=== PATIENT | female | born 1975 | race Caucasian/White ===

== ENCOUNTER 2018-08-11 06:05 | Emergency (ER) | payer BC, OTHER ==
[2018-08-11] MEDS ORDERED: Sodium Chloride 0.9% 1,000 ML IV ONE (06:23)
[2018-08-11] MEDS ORDERED: Ketorolac 30 MG/ML SDV IVPUSH ONE (06:23)
[2018-08-11] MEDS ORDERED: Diltiazem 25 MG/5 ML SDV IVPUSH ONE (06:28)
[2018-08-11] MEDS ORDERED: Ondansetron 4 MG/2 ML SDV IV ONE (06:28)
--- NOTE | 2018-08-11 06:30 | EDM.PDOC ---
<William Eisenberg - Last Filed: 08/11/18 06:44> ED HPI GENERAL MEDICAL PROBLEM - General Chief Complaint: Headache Stated Complaint: SWEATS/HEADACHE/CHEST POUNDING [id number] Time Seen by Provider: 08/11/18 06:25 Source of Information: Reports: Patient, Family History Limitations: Reports: No Limitations - History of Present Illness INITIAL COMMENTS - FREE TEXT/NARRATIVE: c/o recurrent CHOWDARY worse one ever. started yesterday with N&V, took 2x oxy for chronic LBP but not helping. also has chest tightness heart pounding sweaty. spouse states she was fine came up for fishing and Sx started after getting back. took extra BP Rx also. denies preg had hysterectomy. Right Frontal Headache Pain Score (Numeric/FACES): 8 - Related Data Allergies Allergy/AdvReac Type Severity Reaction Status Date / Time No Known Allergies Allergy Verified 08/11/18 06:27 Home Meds: Home Meds Escitalopram [Lexapro] 20 mg PO DAILY 08/11/18 [History] Propranolol HCl [Inderal LA] 160 mg PO DAILY 08/11/18 [History] Topiramate 150 mg PO BEDTIME 08/11/18 [History] atorvaSTATin [Lipitor] 20 mg PO BEDTIME 08/11/18 [History] buPROPion HCl [Wellbutrin Xl] 300 mg PO DAILY 08/11/18 [History] clonazePAM [Clonazepam] 1 mg PO BEDTIME 08/11/18 [History] metFORMIN HCl [Metformin HCl] 1,000 mg PO BID 08/11/18 [History] oxyCODONE HCl/Acetaminophen [Oxycodone-Acetaminophen 5-325] 5 mg PO Q6HR PRN [History] ED ROS GENERAL - Review of Systems Review Of Systems: ROS reveals no pertinent complaints other than HPI. - Physical Exam Exam: See Below Exam Limited By: No Limitations General Appearance: Alert, WD/WN, Mild Distress, Other (tearful upset) Eye Exam: Bilateral Eye: PERRL (pupils ER @ 4mm) Ears: Hearing Grossly Normal Throat/Mouth: Normal Voice, No Airway Compromise Head Exam: Atraumatic Neck: Non-Tender, Full Range of Motion Respiratory/Chest: No Respiratory Distress Cardiovascular: Regular Rate, Rhythm GI/Abdominal: Soft, Non-Tender Neuro Exam (Abbreviated): Alert, Oriented, Normal Cognition, Normal Gait, No Motor/Sensory Deficits Psychiatric: Tearful Skin Exam: Warm, Dry, Normal Color Course - Vital Signs Last Recorded V/S: Last Vital Signs Temp 36.5 C 08/11/18 06:08 Pulse 83 08/11/18 06:08 Resp 17 08/11/18 06:08 BP 182/130 H 08/11/18 06:08 Pulse Ox 100 08/11/18 06:08 - Orders/Labs/Meds Orders: Active Orders 24 hr Category Date Time Status Head wo Cont [CT] Urgent Exams 08/11/18 06:44 Taken Labs: Laboratory Tests 08/11/18 08/11/18 08/11/18 Range/Units 06:20 06:20 06:22 WBC 12.4 H (5.0-10.0) 10^3/uL RBC 4.71 (4.2-5.4) 10^6/uL Hgb 14.2 (12.0-16.0) g/dL Hct 41.1 (37.0-47.0) % MCV 87.3 (80-100) fL MCH 30.1 (27.0-34.0) pg MCHC 34.5 (33.0-35.0) g/dL Plt Count 206 (150-450) 10^3/uL Neut % (Auto) 73.0 (42.2-75.2) % Lymph % (Auto) 19.5 L (20.5-50.1) % [place] % (Auto) 5.6 (2-8) % Eos % (Auto) 1.7 (1.0-3.0) % Baso % (Auto) 0.2 (0.0-1.0) % Sodium 137 (135-145) mmol/L Potassium 3.3 L (3.6-5.0) mmol/L Chloride 104 (101-111) mmol/L Carbon Dioxide 22.0 (21.0-31.0) mmol/L Anion Gap 14.3 BUN 16 (7-18) mg/dL Creatinine 0.7 (0.6-1.3) mg/dL Est Cr Clr Drug Dosing 88.68 mL/min Estimated GFR (MDRD) > 60 BUN/Creatinine Ratio 22.85 Glucose 131 H (74-105) mg/dL POC Glucose 130 H (70-105) mg/dl Calcium 9.0 (8.4-10.2) mg/dl Total Bilirubin 0.8 (0.2-1.0) mg/dL AST 17 (10-42) IU/L ALT 21 (10-60) IU/L Alkaline Phosphatase 44 (42-121) IU/L Troponin I < 0.02 (0.00-0.02) ng/ml Total Protein 7.3 (6.7-8.2) g/dl Albumin 4.4 (3.2-5.5) g/dl Globulin 2.9 Albumin/Globulin Ratio 1.52 Urine Color (YELLOW) Urine Appearance (CLEAR) Urine pH (5.0-9.0) Ur Specific [place] (1.005-1.030) Urine Protein (NEGATIVE) Urine Glucose (UA) (NEGATIVE) Urine Ketones (NEGATIVE) Urine Occult Blood (NEGATIVE) Urine Nitrite (NEGATIVE) Urine Bilirubin (NEGATIVE) Urine Urobilinogen (0.2-1.0) mg/dL Ur Leukocyte Esterase (NEGATIVE) Urine Opiates Screen (NEGATIVE) Ur Oxycodone Screen (NEGATIVE) Urine Methadone Screen (NEGATIVE) Ur Barbiturates Screen (NEGATIVE) U Tricyclic Antidepress (NEGATIVE) Ur Phencyclidine Scrn (NEGATIVE) Ur Amphetamine Screen (NEGATIVE) U Methamphetamines Scrn (NEGATIVE) Urine MDMA Screen (NEGATIVE) U Benzodiazepines Scrn (NEGATIVE) Urine Cocaine Screen (NEGATIVE) U Marijuana (THC) Screen (NEGATIVE) Ethyl Alcohol < 5 mg/dL 08/11/18 08/11/18 Range/Units 07:21 07:21 WBC (5.0-10.0) 10^3/uL RBC (4.2-5.4) 10^6/uL Hgb (12.0-16.0) g/dL Hct (37.0-47.0) % MCV (80-100) fL MCH (27.0-34.0) pg MCHC (33.0-35.0) g/dL Plt Count (150-450) 10^3/uL Neut % (Auto) (42.2-75.2) % Lymph % (Auto) (20.5-50.1) % [place] % (Auto) (2-8) % Eos % (Auto) (1.0-3.0) % Baso % (Auto) (0.0-1.0) % Sodium (135-145) mmol/L Potassium (3.6-5.0) mmol/L Chloride (101-111) mmol/L Carbon Dioxide (21.0-31.0) mmol/L Anion Gap BUN (7-18) mg/dL Creatinine (0.6-1.3) mg/dL Est Cr Clr Drug Dosing mL/min Estimated GFR (MDRD) BUN/Creatinine Ratio Glucose (74-105) mg/dL POC Glucose (70-105) mg/dl Calcium (8.4-10.2) mg/dl Total Bilirubin (0.2-1.0) mg/dL AST (10-42) IU/L ALT (10-60) IU/L Alkaline Phosphatase (42-121) IU/L Troponin I (0.00-0.02) ng/ml Total Protein (6.7-8.2) g/dl Albumin (3.2-5.5) g/dl Globulin Albumin/Globulin Ratio Urine Color Yellow (YELLOW) Urine Appearance Cloudy (CLEAR) Urine pH 7.5 (5.0-9.0) Ur Specific [place] 1.020 (1.005-1.030) Urine Protein Negative (NEGATIVE) Urine Glucose (UA) Negative (NEGATIVE) Urine Ketones Negative (NEGATIVE) Urine Occult Blood Negative (NEGATIVE) Urine Nitrite Negative (NEGATIVE) Urine Bilirubin Negative (NEGATIVE) Urine Urobilinogen 0.2 (0.2-1.0) mg/dL Ur Leukocyte Esterase Negative (NEGATIVE) Urine Opiates Screen Negative (NEGATIVE) Ur Oxycodone Screen Positive H (NEGATIVE) Urine Methadone Screen Negative (NEGATIVE) Ur Barbiturates Screen Negative (NEGATIVE) U Tricyclic Antidepress Negative (NEGATIVE) Ur Phencyclidine Scrn Negative (NEGATIVE) Ur Amphetamine Screen Negative (NEGATIVE) U Methamphetamines Scrn Negative (NEGATIVE) Urine MDMA Screen Negative (NEGATIVE) U Benzodiazepines Scrn Negative (NEGATIVE) Urine Cocaine Screen Negative (NEGATIVE) U Marijuana (THC) Screen Negative (NEGATIVE) Ethyl Alcohol mg/dL Meds: Medications Discontinued Medications Generic Name Dose Route Start Last Admin Trade Name Freq PRN Reason Stop Dose Admin Diltiazem HCl 20 mg 08/11/18 06:28 08/11/18 06:41 Diltiazem IVPUSH 08/11/18 06:29 20 mg ONETIME ONE Administration Diphenhydramine HCl 25 mg 08/11/18 07:27 08/11/18 07:39 Benadryl IVPUSH 08/11/18 07:28 25 mg ONETIME ONE Administration Sodium Chloride 1,000 mls @ 999 mls/hr 08/11/18 06:23 08/11/18 06:37 Normal Saline IV 08/11/18 07:23 999 mls/hr .BOLUS ONE Administration Ketorolac Tromethamine 30 mg 08/11/18 06:23 08/11/18 06:39 Toradol IVPUSH 08/11/18 06:24 30 mg ONETIME ONE Administration Metoclopramide HCl 10 mg 08/11/18 07:27 08/11/18 07:39 Reglan IVPUSH 08/11/18 07:28 10 mg ONETIME ONE Administration Ondansetron HCl 4 mg 08/11/18 06:28 08/11/18 06:37 Zofran IV 08/11/18 06:29 4 mg ONETIME ONE Administration Departure - Departure Disposition: Home, Self-Care 01 Clinical Impression: Migraine - Discharge Information Referrals: PCP,Not In Area [Primary Care Provider] - Forms: ED Department Discharge Additional Instructions: Home rest as much as possible. Decrease stimulation from lights sounds and noises. Continue your previous medication Return to the ED if new or worsening symptoms Follow up with PCP in the next 4-6 days if not improving sooner if worse. <John White - Last Filed: 08/11/18 08:25> Course - Re-Assessments/Exams Free Text/Narrative Re-Assessment/Exam: 08/11/18 08:00 I assumed care of the patient. at 0700. Her blood pressure has improved and headache is returning. Reglan 10 mg slow IVP after benadryl 25mg IVP. CT of the head per radiology no acute intracranial abnormality. 08/11/18 08:23 Following the above therapy the patient is completely asymptomatic. She has no headache. No other complaints. She feels much better. I wonder if this is not somewhat of a complex migraine presentation. We'll discharge her home with rest. She can continue her previous medications. She is comfortable with this plan her questions are answered. Departure - Departure Time of Disposition: 08:23 - Assessment/Plan Assessment:: Complex migraine. Plan: Home rest as much as possible. Decrease stimulation from lights sounds and noises. Continue your previous medication Return to the ED if new or worsening symptoms Follow up with PCP in the next 4-6 days if not improving sooner if worse.
[2018-08-11 06:48] LABS: ANION GAP 14.3; CHLORIDE,CL 104 mmol/L (101-111); SODIUM,NA 137 mmol/L (135-145)
[2018-08-11] MEDS ORDERED: diphenhydrAMINE 50 MG/ML SDV IVPUSH ONE (07:27)
[2018-08-11] MEDS ORDERED: Metoclopramide 10 MG/2 ML SDV IVPUSH ONE (07:27)
== END 2018-08-11 08:38 | disposition home or self-care (01) ==
LOC: EDBD → DL.ED 06:05
DX: G43.809 Other migraine, not intractable, without status migrainosus (principal); Z79.899 Other long term (current) drug therapy
CPT/HCPCS: 36415; 70450; 80053; 80305; 81003; 82962; 84484; 85025; 93005; 96361; 96374; 96375; 99285; G0480; J1200; J1885; J2405; J2765; J3490; J7030